=== PATIENT | male | born 1995 | race Hispanic/Latino ===

== ENCOUNTER 2023-05-01 16:17 | Emergency (ER) | payer OTHER ==
[~2023-05-01] VITALS: Ht 167.6 cm; Wt 95.7 kg
[2023-05-01 17:17] VITALS: BP 142/81; PULSE 65; RESP 18
[2023-05-01] MEDS ORDERED: IBUP-2077 PO (18:15)
[2023-05-01] MEDS ORDERED: IBUPROFEN 800 MG TAB PO ONE (18:30)
== END 2023-05-01 18:34 | disposition home or self-care (01) ==
LOC: EDH 16:17
DX: S60.221A Contusion of right hand, initial encounter (principal); W22.8XXA Striking against or struck by other objects, initial encounter; Y93.71 Activity, boxing; Y92.89 Other specified places as the place of occurrence of the external cause; Y99.8 Other external cause status
CPT/HCPCS: 73130

== ENCOUNTER 2023-07-30 19:25 | Emergency (ER) | payer OTHER ==
[~2023-07-30] VITALS: Ht 167.6 cm; Wt 95.7 kg
[~2023-07-30 19:25] MED LIST: IBUP-2077 PO
[2023-07-30 20:32] LABS: ADD UA MICROSCOPIC YES; APPEARANCE,URINE CLEAR (CLEAR); BILIRUBIN,URINE NEGATIVE (NEGATIVE); COLOR,URINE LIGHT-YELLOW (YELLOW); GLUCOSE, URINE (UA) NEGATIVE (NEGATIVE); KETONES,URINE NEGATIVE (NEGATIVE); LEUKOCYTE ESTERASE ,URINE NEGATIVE Leu/uL (NEGATIVE); NITRATE,URINE NEGATIVE (NEGATIVE); OCCULT BLOOD,URINE MODERATE (NEGATIVE); PROTEIN,URINE NEGATIVE (NEGATIVE); UROBILINOGEN,URINE 0.2 mg/dL (0.2-1.0)
[2023-07-30 20:34] LABS: BACTERIA,URINE RARE /HPF (None Seen); MUCUS,URINE RARE LPF (None Seen)
[2023-07-30] MEDS: METOCLOPRAMIDE 10 MG/2 ML VIAL IVP ONE (21:00)
[2023-07-30] MEDS: KETOROLAC 30MG VIAL (30MG/ML) IVP ONE (21:00)
[2023-07-30] MEDS: 0.9%NACL 1000ML 1,000 ML IV ONE (21:01)
[2023-07-30] MEDS: FAMOTIDINE 20MG VIAL IV ONE (21:01)
[2023-07-30] MEDS ORDERED: KETO10 PO (21:53)
[2023-07-30] MEDS ORDERED: METO-296 PO (21:53)
[2023-07-30] MEDS ORDERED: TAMS-1 PO (21:53)
[2023-07-30] MEDS ORDERED: FAMO-136 PO (21:53)
[2023-07-30] MEDS: TAMSULOSIN HCL 0.4 MG CAP.ER.24H PO ONE (23:20)
[2023-07-30 23:54] VITALS: BP 123/65; PULSE 76; RESP 18
== END 2023-07-31 00:48 | disposition home or self-care (01) ==
LOC: EDH 19:25
DX: N13.2 Hydronephrosis with renal and ureteral calculous obstruction (principal); Z90.49 Acquired absence of other specified parts of digestive tract
CPT/HCPCS: 99285; 74176; 96374; 96375; 96361; 81001; 73030; 76870; J3490; J7030; J1885; J2765